=== PATIENT | male | born 1945 | race Caucasian/White ===

== ENCOUNTER 2018-05-01 12:11 | Emergency (ER) | payer MEDICARE ==
[2018-05-01] MEDS ORDERED: Ketorolac INJ* 30 MG/ML 1 ML VIAL IM ONE (13:01)
[2018-05-01 13:05] LABS: ABS Basophils 0 10^3/ul (0-0.2); ABS Eosinophils 0.3 10^3/ul (0-0.6); ABS Lymphocytes 1.9 10^3/ul (1.0-4.8); ABS Monocytes 0.8 10^3/ul (0-0.8); ABS Neutrophils 5.5 10^3/ul (1.5-7.7); ABS Nucleated RBC 0 10^3/ul; Eosinophil % 3.2 % (0-6); Hematocrit 39 % (42-52); Hemoglobin 14.2 g/dl (14.0-18.0); Lymphocyte % 22.1 % (25-47); Mean Corpuscular HGB Conc 36 g/dl (31-36); Mean Corpuscular Hemoglobin 32 pg (27-31); Mean Corpuscular Volume 89 fL (80-94); Mean Platelet Volume 7.9 um3 (7.4-10.4); Nucleated Red Blood Cells % 0; Platelet Count 223 10^3/ul (150-450); Red Blood Count 4.42 10^6/ul (4.00-5.40); Red Cell Distribution Width 13 % (10.5-15); White Blood Count 8.4 10^3/ul (3.5-10.8)
[2018-05-01 13:23] LABS: EGFR Non-African American 54.6 (>60)
[2018-05-01 13:32] LABS: INR 2.05 (0.77-1.02)
[2018-05-01 14:08] VITALS: BP 140/77
--- NOTE | 2018-05-01 14:45 | ED ---
Sheng Wilson Tariq, scribed for Dimitris Amaor MD on 05/01/18 at 1248 . Upper Extremity Pain - HPI Summary HPI Summary: A 72 y/o male presents to ED c/o left elbow pain and swelling. According to the pt, the pain and swelling in the elbow started yesterday (one day ago). Currently, the pain and swelling still persists, 05/04. He does not know why he has pain and swelling and denies any injury. Pt noted that he has never had gout in his elbow. As per triage, "left elbow with swelling and hotness since yesterday with no known injury. No noted fevers at home. Was seen at [facility] today and sent to ER". PMHx of gout. - History of Current Complaint Chief Complaint: EDExtremityUpper Stated Complaint: LT ELBOW PAIN Time Seen by Provider: 05/01/18 12:35 Hx Obtained From: Patient Mechanism Of Injury: Unknown - Does not known why his left elbow is swelling Onset/Duration: Started Days Ago - Yesterday, Still Present Timing: Constant - Left elbow pain. Severity Initially: Severe - 05/04 Severity Currently: Severe - 05/04 Pain Location: Elbow - Left Character: Burning - Hotness Aggravating Factor(s): Nothing Alleviating Factor(s): Nothing Associated Signs & Symptoms: Positive: Swelling, Redness, Other - Left elbow pain. - Allergies/Home Medications Allergies/Adverse Reactions: Allergies Allergy/AdvReac Type Severity Reaction Status Date / Time Penicillins Allergy Altered Verified 05/01/18 12:18 Mental Status PMH/Surg Hx/FS Hx/Imm Hx Endocrine/Hematology History: Reports: Hx Diabetes, Hx Thyroid Disease Cardiovascular History: Reports: Hx Hypertension - WELL CONTROLLED, Other Cardiovascular Problems/Disorders - HX AFIB; CARDIOVERSION 2002 Respiratory History: Reports: Hx Chronic Obstructive Pulmonary Disease (COPD), Hx Sleep Apnea Musculoskeletal History: Reports: Hx Arthritis Sensory History: Reports: Hx Contacts or Glasses, Hx Glaucoma - BILAT SLIGHT, Hx Hearing Aid - BILAT Opthamlomology History: Reports: Hx Contacts or Glasses, Hx Glaucoma - BILAT SLIGHT - Surgical History Surgery Procedure, Year, and Place: APPENDECTOMY 1970 Hx Anesthesia Reactions: No - Immunization History Immunizations Up to Date: Yes Infectious Disease History: No Infectious Disease History: Denies: Traveled Outside the [place] in Last 30 Days - Family History Known Family History: Positive: Other - Lung cancer, liver cancer, leukemia - Social History Alcohol Use: None Substance Use Type: Reports: None Smoking Status (MU): Former Smoker Type: Cigarettes Length of Time of Smoking/Using Tobacco: 25 YRS Have You Smoked in the Last Year: No Review of Systems Positive: Other - "hotness" of left elbow. Negative: Fever Positive: Other - Left elbow swelling All Other Systems Reviewed And Are Negative: Yes Physical Exam - Summary Physical Exam Summary: Appearance: The patient is well-nourished in no acute distress and in no acute pain. Skin: Mild swelling of left elbow. HEENT: The head is normocephalic and atraumatic. The pupils are equal and reactive. The conjunctivae are clear and without drainage. Nares are patent and without drainage. Mouth reveals moist mucous membranes and the throat is without erythema and exudate. The external ears are intact. The ear canals are patent and without drainage. The tympanic membranes are intact. Neck: The neck is supple with full range of motion and non-tender. There are no carotid bruits. There is no neck vein distension. Respiratory: Chest is non-tender. Lungs are clear to auscultation and breath sounds are symmetrical and equal. Cardiovascular: Heart is regular rate and rhythm. There is no murmur or rub auscultated. There is no peripheral edema and pulses are symmetrical and equal. Abdomen: The abdomen is soft and non-tender. There are normal bowel sounds heard in all four quadrants and there is no organomegaly palpated. Musculoskeletal: There is no back tenderness noted. Warm and tender olecranon burse. There is good capillary refill. There is no peripheral edema or calf tenderness elicited. Neurological: Patient is alert and oriented to person, place and time. The patient has symmetrical motor strength in all four extremities. Cranial nerves are grossly intact. Deep tendon reflexes are symmetrical and equal in all four extremities. Psychiatric: The patient has an appropriate affect and does not exhibit any anxiety or depression. Triage Information Reviewed: Yes Vital Signs On Initial Exam: Initial Vitals Temp Pulse Resp BP Pulse Ox 98.1 F 62 20 149/71 95 05/01/18 12:12 05/01/18 12:12 05/01/18 12:12 05/01/18 12:12 07/07/18 12:12 Vital Signs Reviewed: Yes Diagnostics - Vital Signs Vital Signs Temp Pulse Resp BP Pulse Ox 05/01/18 12:12 98.1 F 62 20 149/71 95 - Laboratory Lab Results: Lab Results 05/01/18 05/01/18 05/01/18 Range/Units 12:58 12:58 13:21 WBC 8.4 (3.5-10.8) 10^3/ul RBC 4.42 (4.00-5.40) 10^6/ul Hgb 14.2 (14.0-18.0) g/dl Hct 39 L (42-52) % MCV 89 (80-94) fL MCH 32 H (27-31) pg MCHC 36 (31-36) g/dl RDW 13 (10.5-15) % Plt Count 223 (150-450) 10^3/ul MPV 7.9 (7.4-10.4) um3 Neut % (Auto) 65.0 (38-83) % Lymph % (Auto) 22.1 L (25-47) % Weston % (Auto) 9.3 H (0-7) % Eos % (Auto) 3.2 (0-6) % Baso % (Auto) 0.4 (0-2) % Absolute Neuts (auto) 5.5 (1.5-7.7) 10^3/ul Absolute Lymphs (auto) 1.9 (1.0-4.8) 10^3/ul Absolute Monos (auto) 0.8 (0-0.8) 10^3/ul Absolute Eos (auto) 0.3 (0-0.6) 10^3/ul Absolute Basos (auto) 0 (0-0.2) 10^3/ul Absolute Nucleated RBC 0 10^3/ul Nucleated RBC % 0 INR (Anticoag Therapy) 2.05 H (0.77-1.02) Sodium 138 (135-145) mmol/L Potassium 3.9 (3.5-5.0) mmol/L Chloride 106 (101-111) mmol/L Carbon Dioxide 27 (22-32) mmol/L Anion Gap 5 (2-11) mmol/L BUN 20 (6-24) mg/dL Creatinine 1.29 H (0.67-1.17) mg/dL Est GFR ( Amer) 66.1 (>60) Est GFR (Non-Af Amer) 54.6 (>60) BUN/Creatinine Ratio 15.5 (8-20) Glucose 141 H (70-100) mg/dL Calcium 9.3 (8.6-10.3) mg/dL Total Bilirubin 0.90 (0.2-1.0) mg/dL AST 15 (13-39) U/L ALT 16 (7-52) U/L Alkaline Phosphatase 39 (34-104) U/L C-Reactive Protein 5.47 (<8.01) mg/L Total Protein 6.9 (6.4-8.9) g/dL Albumin 4.0 (3.2-5.2) g/dL Globulin 2.9 (2-4) g/dL Albumin/Globulin Ratio 1.4 (1-3) Result Diagrams: 05/01/18 12:58 05/01/18 12:58 Lab Statement: Any lab studies that have been ordered have been reviewed, and results considered in the medical decision making process. Re-Evaluation - Re-Evaluation First Eval Re-Evaluation Time: 13:33 Comment: DISCUSSED D/C WITH PATIENT Course/Dx - Course Course Of Treatment: Mr. Thornton presented to the emergency department with about 1 day of left elbow pain. He had erythema over the left dorsal elbow with tenderness and warmth. His olecranon bursa did not feel particularly swollen. He had full range of motion. CBC and CRP were within normal limits and he was afebrile. I think this represents a cellulitis rather than a bursitis or a septic joint and I will treat him with Bactrim as he has a very dramatic bad reaction to penicillin. - Diagnoses Provider Diagnoses: Cellulitis Discharge - Sign-Out/Discharge Documenting (check all that apply): Discharge/Admit/Transfer - DISCHARGE - Discharge Plan Condition: Stable Disposition: HOME Prescriptions: Sulfamethox/Trimethoprim DS* [Bactrim DS 800/160 TAB*] 1 tab PO BID #20 tab Patient Education Materials: Cellulitis (ED) Referrals: Mary Jane Fragoso MD [Primary Care Provider] - Karlo Davalos MD [Medical Doctor] - 3 Days (FOLLOW UP WITH DR. DAVALOS IN 2-3 DAYS.) Additional Instructions: RETURN TO ED FOR ANY NEW OR WORSENING SYMPTOMS. - Billing Disposition and Condition Condition: STABLE Disposition: Home The documentation as recorded by the Sheng sanchez Tariq accurately reflects the service I personally performed and the decisions made by me, Dimitris Amaro MD.
== END 2018-05-01 14:08 | disposition home or self-care (01) ==
LOC: ED 12:11
DX: L03.90 Cellulitis, unspecified (principal); Z79.01 Long term (current) use of anticoagulants; Z87.891 Personal history of nicotine dependence; I10 Essential (primary) hypertension; Z87.09 Personal history of other diseases of the respiratory system; M25.522 Pain in left elbow; R60.0 Localized edema; Z88.0 Allergy status to penicillin
CPT/HCPCS: 36415; 80053; 85025; 85610; 86140; 96372; 99282; J1885

== ENCOUNTER 2019-06-03 16:00 | Emergency (ER) | payer MEDICARE ==
[2019-06-03 16:14] VITALS: BP 145/74
--- NOTE | 2019-06-03 16:32 | UC ---
Skin Complaint HPI - HPI Summary HPI Summary: Pt presents with c/o multiple skin abrasions/tears to right forearm and bilateral anterior knees. Pt states that he tripped outside and fell from standing jsut prior to arrival to clinic. Pt is on blood thinners. - History of Current Complaint Chief Complaint: UCSkin Time Seen by Provider: 06/03/19 16:17 Stated Complaint: S/P FALL-INJURIES ON RIGHT ARM AND KNEES Hx Obtained From: Patient Onset/Duration: Sudden Onset, Still Present Skin Exposure Onset/Duration: Minutes Ago Timing: Constant Onset Severity: Moderate Current Severity: Moderate Pain Intensity: 5 Location: Discrete - right forearm, bilateral knees anterior Aggravating Factor(s): Touch Alleviating Factor(s): Unknown Associated Signs & Symptoms: Positive: Tenderness Related History: Trauma - fall from standing height, pt is able to bear weight and walk without difficulty - Allergy/Home Medications Allergies/Adverse Reactions: Allergies Allergy/AdvReac Type Severity Reaction Status Date / Time Penicillins Allergy Altered Verified 06/03/19 16:06 Mental Status Home Medications: Home Medications Albuterol HFA INHALER* [Ventolin HFA Inhaler*] 1 puff INH Q4H PRN 06/03/19 [ History Confirmed 06/03/19] Apremilast [Otezla] 30 mg PO DAILY 06/03/19 [History Confirmed 06/03/19] Calcium Carbonate [Calcium] 90 mg PO BID 06/03/19 [History Confirmed 06/03/19] Cetirizine HCl [All Day Allergy] 10 mg PO DAILY PRN 06/03/19 [History Confirmed 06/03/19] Colchicine [Mitigare] 0.6 mg PO DAILY PRN 06/03/19 [History Confirmed 06/03/19] Dorzolamide/Timolol OPTH (NF) [Cosopt (NF)] 1 drop BOTH EYES BID 06/03/19 [ History Confirmed 06/03/19] Finasteride TAB* [Proscar TAB*] 5 mg PO DAILY 06/03/19 [History Confirmed ] Fluocinonide 0.05% CM (NF) [Lidex 0.05% CREAM (NF)] 1 applic TOPICAL DAILY 06/03 [History Confirmed 06/03/19] Gabapentin CAP(*) [Neurontin 300 CAP(*)] 600 mg PO DAILY 06/03/19 [History Confirmed 06/03/19] Latanoprost/Pf [Latanoprost 0.005% Eye Drop] 7.5 ml OP DAILY 06/03/19 [History Confirmed 06/03/19] Magnesium Oxide [Magnesium] 420 mg PO DAILY 06/03/19 [History Confirmed 06/03/19 ] Metoprolol Succinate [Toprol Xl] 12.5 mg PO DAILY 06/03/19 [History Confirmed ] Pravastatin Sodium 20 mg PO DAILY 06/03/19 [History Confirmed 06/03/19] Tiotropium CAP.INH* [Spiriva CAP.INH*] 1 cap.inh INH DAILY 06/03/19 [History Confirmed 06/03/19] Triamcinolone 0.1% Cr 15gm -NF [Triamcinolone Acetonide] 1 applic DAILY PRN 07/14 [History Confirmed 06/03/19] Warfarin TAB(*) [Coumadin TAB(*)] 5 mg PO SEE INSTRUCTIONS 06/03/19 [History Confirmed 06/03/19] glipiZIDE [Glipizide ER] 2.5 mg PO DAILY 06/03/19 [History Confirmed 06/03/19] PMH/Surg Hx/FS Hx/Imm Hx Endocrine History: Diabetes, Dyslipidemia Cardiovascular History: Cardiac Disease Respiratory History: COPD - Surgical History Surgical History: Yes Surgery Procedure, Year, and Place: APPENDECTOMY 1969 - Family History Known Family History: Positive: Other - Lung cancer, liver cancer, leukemia - Social History Occupation: Retired Lives: With Family Alcohol Use: None Substance Use Type: None Smoking Status (MU): Former Smoker Type: Cigarettes Length of Time of Smoking/Using Tobacco: 25 YRS Have You Smoked in the Last Year: No When Did the Patient Quit Smoking/Using Tobacco: 1982 Household Exposure Type: Cigarettes Review of Systems All Other Systems Reviewed And Are Negative: Yes Constitutional: Positive: Negative Skin: Positive: Other - skin tears/abrasions Eyes: Positive: Negative ENT: Positive: Negative Respiratory: Positive: Negative Cardiovascular: Positive: Negative Gastrointestinal: Positive: Negative Genitourinary: Positive: Negative Motor: Positive: Negative Musculoskeletal: Positive: Arthralgia - bialteral knees, and right forearm, Myalgia - bilateral knees Neurological: Positive: Negative Psychological: Positive: Negative Is Patient Immunocompromised?: No Physical Exam Triage Information Reviewed: Yes Appearance: Well-Appearing Vital Signs: Initial Vital Signs Temp 98 F 06/03/19 16:06 Pulse 74 06/03/19 16:06 Resp 18 06/03/19 16:06 BP 145/74 06/03/19 16:06 Pulse Ox 96 06/03/19 16:06 Vital Signs Reviewed: Yes Eye Exam: Normal ENT: Positive: Hearing grossly normal Dental Exam: Normal Neck exam: Normal Respiratory: Positive: No respiratory distress Musculoskeletal Exam: Normal Musculoskeletal: Positive: Strength Intact, ROM Intact Neurological Exam: Normal Psychological Exam: Normal Skin: Positive: Significant Lesion(s) - large skin tears on right forearm, moderate ~ half dollar size skin tear on bilateral anterior knees Course/Dx - Differential Diagnoses - Skin Complaint Differential Diagnoses: Other - skin tears - Diagnoses Provider Diagnosis: Contusion of left patella, Contusion of knee, right, Skin tear of forearm without complication, Multiple skin tears Discharge - Sign-Out/Discharge Documenting (check all that apply): Patient Departure All imaging exams completed and their final reports reviewed: No Studies - Discharge Plan Condition: Stable Disposition: HOME Prescriptions: Bismuth Tribromoph/Petrolatum [Xeroform Petrol 5"X9" Dressing] 1 each TP DAILY # 7 bandage Patient Education Materials: Skin Tear (ED) Referrals: Mary Jane Fragoso MD [Primary Care Provider] - If Needed Additional Instructions: Please change dressing daily or more frequently if it becomes soiled. Please monitor for signs of infection that include but not limited to increased redness , purulent discharge, swelling, fever, and increased tenderness. - Billing Disposition and Condition Condition: STABLE Disposition: Home
== END 2019-06-03 16:44 | disposition home or self-care (01) ==
LOC: UCCORT 16:00
DX: S51.811A Laceration without foreign body of right forearm, initial encounter (principal); S81.012A Laceration without foreign body, left knee, initial encounter; S81.011A Laceration without foreign body, right knee, initial encounter; W01.0XXA Fall on same level from slipping, tripping and stumbling without subsequent striking against object, initial encounter; Y93.9 Activity, unspecified; Y92.9 Unspecified place or not applicable; Z79.01 Long term (current) use of anticoagulants; Z88.0 Allergy status to penicillin; E11.9 Type 2 diabetes mellitus without complications; Z79.84 Long term (current) use of oral hypoglycemic drugs; J44.9 Chronic obstructive pulmonary disease, unspecified; E78.5 Hyperlipidemia, unspecified; Z87.891 Personal history of nicotine dependence
CPT/HCPCS: 99212; G0463

== ENCOUNTER 2019-06-10 10:32 | Emergency (ER) | payer MEDICARE ==
[2019-06-10 11:07] VITALS: BP 84/52
[2019-06-10] MEDS ORDERED: Tetan/Diph/Pertus SYR(Tdap)* 0.5 ML SYR(BOOSTRIX) use SYR contains LATEX IM ONE (11:30)
--- NOTE | 2019-06-10 11:30 | UC ---
Knee Pain HPI - HPI Summary HPI Summary: 73-year-old male who tripped on some loose gravel and fell one week ago today causing numerous abrasions and skin tears to his right arm and forearm as well as both knees. He has been ambulating since then and stated yesterday his knees became more painful, swelling mildly warm to touch. The skin tear on the right upper arm also has become a little more tender. He denies any neck pain and states he did not hit his head. He verifies that he tripped on the gravel and did not feel lightheaded or pass out and fall. - History of Current Complaint Chief Complaint: UCLowerExtremity Stated Complaint: S/P FALL-BILATERAL KNEE PAIN Time Seen by Provider: 06/10/19 11:21 Hx Obtained From: Patient, Family/Hash Slinger Onset/Duration: Gradual Onset Severity Initially: Mild Severity Currently: Moderate Pain Intensity: 8 Character: Dull, Aching Aggravating Factor(s): Movement - Both knees are more painful since yesterday., Weight Bearing Alleviating Factor(s): Nothing Associated Signs And Symptoms: Positive: Swelling, Redness Able to Bear Weight: Yes - Allergies/Home Medications Allergies/Adverse Reactions: Allergies Allergy/AdvReac Type Severity Reaction Status Date / Time Penicillins Allergy Altered Verified 06/10/19 11:08 Mental Status PMH/Surg Hx/FS Hx/Imm Hx Previously Healthy: Yes Endocrine History: Diabetes, Thyroid Disease Cardiovascular History: Cardiac Disease, Hypertension Respiratory History: COPD - Surgical History Surgical History: Yes Surgery Procedure, Year, and Place: APPENDECTOMY 1969. Thyroid. R carpel tunnel - Family History Known Family History: Positive: Other - Lung cancer, liver cancer, leukemia - Social History Alcohol Use: None Substance Use Type: None Smoking Status (MU): Former Smoker Type: Cigarettes Length of Time of Smoking/Using Tobacco: 25 YRS Have You Smoked in the Last Year: No When Did the Patient Quit Smoking/Using Tobacco: 1982 Household Exposure Type: Cigarettes Review of Systems All Other Systems Reviewed And Are Negative: Yes Skin: Positive: Other - The right upper arm skin tears and both knees have become more tender, mildly swollen and with erythema. Musculoskeletal: Positive: Other: - Patient states both knees have become more swollen today with erythema and he's having more difficulty walking. When he was seen one week ago he did not have x-rays done nor did he receive a tetanus immunization. Patient denies any neck pain and denies hitting his head. Is Patient Immunocompromised?: No Physical Exam Triage Information Reviewed: Yes Appearance: Well-Appearing, No Pain Distress, Well-Nourished Vital Signs: Initial Vital Signs Temp 97.2 F 06/10/19 10:56 Pulse 74 06/10/19 10:56 Resp 18 06/10/19 10:56 BP 84/52 06/10/19 10:56 Pulse Ox 98 06/10/19 10:56 Vital Signs Reviewed: Yes Musculoskeletal: Positive: Strength Intact, ROM Intact, Other: - Good peripheral pulses, neuro sensation and capillary refill. Both knees are mildly swollen and tender on palpation with eyelid erythema. No active drainage from the abrasions that are present. Neurological: Positive: Alert, Muscle Tone Normal Psychological Exam: Normal Skin: Positive: Other - Patient has scabbed over skin tears on both knees and right forearm and upper right arm. The upper right arm has some mild swelling with erythema and increased tenderness on palpation, no active pus drainage. Knee Pain Course/Dx - Course Course Of Treatment: Right and left knee x-ray:AP standing view of both knees, lateral, tunnel and patellofemoral views of both knees are reviewed. The right knee demonstrates joint space to be well preserved. No fractures identified. No joint effusion is noted. The left knee demonstrates no fracture or dislocation. No joint effusion is noted. IMPRESSION: Unremarkable bilateral knees Patient was given Tdap tetanus immunization here. The patient states he is stable on his Coumadin. His has an appointment with her primary care provider on Thursday, who is the same provider as her , so she is going to have him rechecked on Thursday as well. - Differential Dx/Diagnosis Provider Diagnosis: Cellulitis of knee, left, Cellulitis of knee, right Discharge - Sign-Out/Discharge Documenting (check all that apply): Patient Departure All imaging exams completed and their final reports reviewed: Yes - Discharge Plan Condition: Fair Disposition: HOME Prescriptions: Cephalexin CAP* [Keflex 500 CAP*] 500 mg PO TID 10 Days #30 cap Patient Education Materials: Cellulitis (DC) Referrals: Micaela Dumas MD [Primary Care Provider] - Additional Instructions: Warm moist compresses to the red areas 4-6 times a day for 20 minutes each time. Definite follow-up with your primary care provider early next week for recheck. You were given Tdap tetanus immunization which is good for 8-10 years - Billing Disposition and Condition Condition: FAIR Disposition: Home
== END 2019-06-10 12:30 | disposition home or self-care (01) ==
LOC: UCCORT 10:32
DX: L03.116 Cellulitis of left lower limb (principal); L03.115 Cellulitis of right lower limb; Z88.0 Allergy status to penicillin; E11.9 Type 2 diabetes mellitus without complications; I10 Essential (primary) hypertension; Z87.891 Personal history of nicotine dependence
CPT/HCPCS: 90715; 96372; 99212; G0463

== ENCOUNTER 2020-07-18 12:38 | Observation (INO) ==
[~2020-07-18 12:38] MED LIST: Buffered Lidocaine 1% SYRIN 1 ml INTRADERM ONE; Lactated Ringers 1000 ml BAG 1,000 ML IV SCH
[2020-07-18] MEDS ORDERED: Clindamycin 900 MG/D5W BAG 900 MG/50 ML BAG IVPB ONE (13:09)
[2020-07-18] MEDS ORDERED: Buffered Lidocaine 1% SYRIN 1 ml INTRADERM ONE (13:09)
[2020-07-18 13:43] LABS: INR 1.87 (0.82-1.09)
[2020-07-18] MEDS ORDERED: Bupivacaine 0.25% SDV 30 ML ONE (15:31)
[2020-07-18] MEDS ORDERED: Propofol 10 MG/ML 20 ML BTL ONE ×2 (15:39→18:12)
[2020-07-18] MEDS ORDERED: Succinylcholine 200 mg VIAL 20 mg/ml 10 ml VIAL (200 mg) ONE (15:39)
[2020-07-18] MEDS ORDERED: fentaNYL 100 mcg/2 ml 50 MCG/ML VIAL ONE ×2 (15:39→21:24)
[2020-07-18] MEDS ORDERED: Midazolam 2 mg/2 ml VIAL 1 mg/ml 2 ml VIAL (2 mg) ONE (15:39)
[2020-07-18] MEDS ORDERED: Lidocaine 2% PF 5 ML VIAL ONE (15:46)
[2020-07-18] MEDS ORDERED: Levalbuterol HFA INHALER MDI ONE (15:58)
[2020-07-18] MEDS ORDERED: DiMENhydriNATE IV 50 mg/ml 1 ml VIAL IV PUSH PRN (17:26)
[2020-07-18] MEDS ORDERED: Naloxone 0.4 mg VIAL 0.4 mg/ml 1 ml VIAL IV PRN (17:26)
[2020-07-18] MEDS ORDERED: Ondansetron 4 mg VIAL 2 MG/ML 2 ml VIAL ONE (18:26)
[2020-07-18] MEDS ORDERED: Albuterol/Ipratropium NEB.SOL (2.5/0.5 MG) 3 ML NEB.SOLN INH ONE (19:39)
[2020-07-18] MEDS ORDERED: Ondansetron 4 mg VIAL 2 MG/ML 2 ml VIAL IV PRN (20:09)
[2020-07-18] MEDS ORDERED: diPHENhydraMINE 25 mg TAB PO PRN (20:09)
[2020-07-18] MEDS ORDERED: Albuterol/Ipratropium NEB.SOL (2.5/0.5 MG) 3 ML NEB.SOLN INH PRN (20:12)
[2020-07-18] MEDS ORDERED: Metformin ER 500 mg TAB (NF) PO SCH (21:00)
[2020-07-18] MEDS ORDERED: Lactated Ringers 1000 ml BAG 1,000 ML IV SCH (21:00)
[2020-07-18] MEDS ORDERED: Dextrose 50% Syringe 50 ml 25 GM/50 ML SYRINGE IV PUSH PRN (21:26)
[2020-07-18] MEDS: fentaNYL 100 mcg/2 ml 50 MCG/ML VIAL IV PRN ×4 (21:32→21:58)
[2020-07-18] MEDS: oxyCODONE/Acetamin 5/325 mg TAB PO PRN (23:41)
[2020-07-19 06:53] LABS: ABS Eosinophils 0.2 10^3/ul (0-0.6); ABS Lymphocytes 1.7 10^3/ul (1.0-4.8); ABS Neutrophils 7.1 10^3/ul (1.5-7.7); Eosinophil % 2.4 %; Hematocrit 39 % (42-52); Hemoglobin 14.2 g/dL (14.0-18.0); Lymphocyte % 16.7 %; Mean Corpuscular HGB Conc 37 g/dL (31-36); Mean Corpuscular Hemoglobin 33 pg (27-31); Mean Corpuscular Volume 89 fL (80-94); Mean Platelet Volume 7.7 fL (7.4-10.4); Nucleated Red Blood Cells % 0.1; Platelet Count 260 10^3/uL (150-450); Red Blood Count 4.36 10^6 /uL (4.18-5.48); Red Cell Distribution Width 14 % (10-15); White Blood Count 10.1 10^3/uL (3.5-10.8)
[2020-07-19 06:55] LABS: BUN/Creatinine Ratio 11.9 (8-20); Calcium 9.1 mg/dL (8.6-10.3); EGFR African American 43.2 (>60); EGFR Non-African American 35.7 (>60); Potassium 4.1 mmol/L (3.5-5.0)
[2020-07-19 06:57] LABS: INR 1.66 (0.82-1.09)
[2020-07-19] MEDS: oxyCODONE/Acetamin 5/325 mg TAB PO PRN (08:54)
[2020-07-19] MEDS ORDERED: Cholecalciferol (VIT D3) 1,000 unit TAB PO SCH (09:00)
[2020-07-19] MEDS ORDERED: APREMILAST 30 MG PO SCH (09:00)
[2020-07-19] MEDS ORDERED: Dorzolamide/Timolol OPTH (NF) 10 ML BOT BOTH EYES SCH (09:00)
[2020-07-19] MEDS ORDERED: Olodaterol Inhaler MDI INH SCH (09:00)
[2020-07-19 15:44] VITALS: BP 140/54
[2020-07-19] MEDS ORDERED: Warfarin DAILY REMINDER **NOTE FOLLOW UP SCH (17:00)
[2020-07-19] MEDS ORDERED: Latanoprost 0.005% 2.5 ml BTL BOTH EYES SCH (21:00)
== END 2020-07-19 16:45 | disposition home or self-care (01) ==
LOC: OR 12:38 → SSU 23:23 → INTOOBSV 23:23
PROVIDERS: ADMIT Orthopaedic Surgery Hand Surgery; ATTEND Orthopaedic Surgery Hand Surgery